=== PATIENT | female | born 1945 | race Caucasian/White ===

== ENCOUNTER → 2024-02-06 13:32 | Outpatient (REF) | payer MEDICARE, SELFPAY | LOC: WDC 13:32 | PROVIDERS: ATTENDING PHYSICIAN Physician Assistant Medical; REFERRING PHYSICIAN Internal Medicine Rheumatology | DX: Z12.31 Encounter for screening mammogram for malignant neoplasm of breast (principal); N95.9 Unspecified menopausal and perimenopausal disorder; M81.0 Age-related osteoporosis without current pathological fracture | CPT/HCPCS: 77063; 77067; 77080 ==

== ENCOUNTER 2024-11-11 14:33 | Emergency (ER) | payer MEDICARE, SELFPAY ==
[2024-11-11] VITALS (11 sets, daily range): BP systolic 114–146; BP diastolic 69–100; BMI 26.6
[2024-11-11 14:46] LABS: % Basophils 0.3 % (0-2); % Eosinophils 0.2 % (0-6); % Immature Granulocytes 0.9 % (0-0.5); % Lymphocytes 9.3 % (20.5-51.1); % Monocytes 7.7 % (1.7-9.3); % Neutrophils 81.6 % (42.2-75.2); Absolute Basophils 0.1 10^3/uL (0-0.2); Absolute Immature Granulocytes 0.1 10^3/uL (0-0.05); Absolute Lymphocytes 1.5 10^3/uL (1.2-3.4); Absolute Monocytes 1.2 10^3/uL (0.1-0.6); Absolute Neutrophils 12.9 10^3/uL (1.4-6.5); Hematocrit 38.4 % (37.0-47.0); Hemoglobin 13.1 g/dL (12.0-16.0); Mean Corp Hgb Conc. 34.1 g/dL (33.0-37.0); Mean Corpuscular Hgb 34.2 pg (27.0-31.0); Mean Corpuscular Volume 100.3 fL (81.0-99.0); Mean Platelet Volume 10.2 fL (7.4-10.4); Nucleated Red Blood Cells % 0 %; Platelet Count 225 10^3/uL (130-400); Red Blood Cell Count 3.83 10^6/uL (4.20-5.40); Red Cell Dist. Width 12.4 % (11.5-14.5); White Blood Cell Count 15.8 10^3/uL (4.8-10.8)
[2024-11-11 15:06] LABS: ALT (SGPT) 21 U/L (0-35); AST (SGOT) 31 U/L (14-36); Albumin 4.4 g/dl (3.5-5.0); Alkaline Phosphatase 58 U/L (38-126); Blood Urea Nitrogen 26 mg/dl (7-17); Calcium 9.9 mg/dl (8.4-10.2); Carbon Dioxide 27 mmol/L (22-30); Chloride 108 mmol/L (98-107); Glucose 157 mg/dl (70-99); Potassium 5.1 mmol/L (3.5-5.1); Sodium 141 mmol/L (135-145); Total Bilirubin 0.9 mg/dl (0.2-1.3); Total Protein 7.3 g/dl (6.3-8.2); eGFR 46.62
[2024-11-11 15:12] LABS: Troponin I < 0.012 ng/ml
[2024-11-11] MEDS: DILAUDID 0.5 MG IV ×2 (18:36→20:28)
[2024-11-11] MEDS: NSS 1000 IV (18:36)
--- NOTE | 2024-11-11 19:08 | ED.GENMED ---
History of Present Illness
<Nichole Escobar PA-C - Last Filed: 11/12/24 11:16>
General
Chief Complaint: Fainting/Passed Out
Source: patient
Exam Limitations: none
Time Seen by Provider: 11/11/24 16:50
Nursing documentation reviewed up to this point in time: agreed with
History of Present Illness
History of Present Illness:
79 y/o F
h/o HLD
severe osteoporosi and scoliosis
says she ate ham and felt like it didn't go down all the way; she got a little distressed/panicked and walked outside and subsequently got lightheaded and passed out on the concrete
woke up on the ground, neighbor saw and helped her up
she has hematoma and a small headache but mostly pain in her back, specifically L side posterior ribs
worse with changing position and her pox was low
no abd pain, vomiting, confusion, neck pain, weakness, numbness, thinners
Past History
<Nichole Escobar PA-C - Last Filed: 11/12/24 11:16>
Past History
ED Past Medical History: Hypercholesterolemia
ED Past Surgical History: Gynecological and Orthopedic
Social History
Tobacco: Non-smoker
Alcohol: None
Drug: None
Personal:
Living: with family
Review of Systems
<Nichole Escobar PA-C - Last Filed: 11/12/24 11:16>
Review of Systems
Allergies reviewed?: Yes
All Other Systems: Not applicable
Phy Exam
<Nichole Escobar PA-C - Last Filed: 11/12/24 11:16>
Physical Exam
Physical Exam:
GENERAL: Alert , in no apparent distress
HEAD: hematoma posterior scalp mild L upper; no bleeding
NECK: no midline tenderness, active ROM intact, no paraspinal muscle tenderness;
EYE: pupils equal and reactive, EOMs intact.
ENT: o/p clr, mmm. no hemotympanum
CARDIAC: Regular rate and rhythm, no edema
LUNGS: Clear breath sounds bilaterally, no acute respiratory distress, no wheezes/rales/rhonchi
ABDOMEN: Soft, without focal tenderness, no r/g, no cvat
no bruising
NEUROLOGICAL: Alert and oriented, no focal neuro deficits, CN intact, 5/5 strength, sensation intact
SKIN: Warm and dry,
back: severe scoliosis
L tenderness lower ribs; small bruising;
no cva tenderness
MUSCULOSKELETAL: moving amrs and legs well
L hand and elbow soreness;
peklvis stable, nontender hips b/l
PSYCH: Normal and appropriate interaction.
Course
<Nichole Escobar PA-C - Last Filed: 11/12/24 11:16>
Orders/Labs/Results
Orders:
Orders
11/11/24 14:34
Electrocardiogram (*1) Urgent
Reason for Study: Chest Pain
EKG- Treatment ONCE
11/11/24 14:38
CT Head W/o Iv Contrast Urgent
Comment:
Reason For Exam: syncope
11/11/24 14:40
Complete Blood Count/With Diff Urgent
Comprehensive Metabolic Panel Urgent
Troponin I Urgent
11/11/24 17:51
CT Cervical Spine W/o Iv Contr Urgent
Comment:
Reason For Exam: trauma syncope
CT Chest W/o Iv Contrast Urgent
Comment:
Reason For Exam: syncope, fall backwards, sob
11/11/24 18:07
0.9% Sodium Chloride 1000 ml [Nss] 1,000 ml IV BOLUS
HYDROmorphone [Dilaudid] 0.5 mg IV NOW STA
11/11/24 18:19
Elbow, 3 view, Left [CR Elbow - Left Min 3 Views ] Urgent
Comment:
Reason For Exam: pain injury
Hand, Right 3 View [CR Hand - Right Min 3 Views] Urgent
Comment:
Reason For Exam: pain injury
11/11/24 20:19
HYDROmorphone [Dilaudid] 0.5 mg .ROUTE .STK-MED ONE
11/11/24 20:28
HYDROmorphone [Dilaudid] 0.5 mg IV NOW STA
Abnormal Lab Results
11/11/24
14:40
WBC 15.8 H 10^3/uL
(4.8-10.8)
RBC 3.83 L 10^6/uL
(4.20-5.40)
MCV 100.3 H fL
(81.0-99.0)
MCH 34.2 H pg
(27.0-31.0)
Abs Immat Gran (auto) 0.1 H 10^3/uL
(0-0.05)
Absolute Neuts (auto) 12.9 H 10^3/uL
(1.4-6.5)
Absolute Monos (auto) 1.2 H 10^3/uL
(0.1-0.6)
Immature Gran % 0.9 H %
(0-0.5)
Neutrophils % 81.6 H %
(42.2-75.2)
Lymphocytes % 9.3 L %
(20.5-51.1)
Chloride 108 H mmol/L
(98-107)
BUN 26 H mg/dl
(7-17)
Creatinine 1.2 H mg/dL
(0.6-1.0)
Glucose 157 H mg/dl
(70-99)
11/11/24 14:40
11/11/24 14:40
Vital Signs
Initial and Last Documented VS:
Initial Vital Signs
Temp Pulse Resp BP Pulse Ox
36.3 C 66 16 136/100 5
11/11/24 14:34 11/11/24 14:34 11/11/24 14:34 11/11/24 14:34 11/11/24 14:34
Last Documented Vital Signs
Temp Pulse Resp BP Pulse Ox
36.3 C 67 19 121/71 99
11/11/24 14:34 11/11/24 23:30 11/11/24 23:30 11/11/24 23:00 11/11/24 19:20
<Mariela Bui MD - Last Filed: 11/11/24 20:22>
Orders/Labs/Results
Orders:
Orders
11/11/24 14:34
Electrocardiogram (*1) Urgent
Reason for Study: Chest Pain
EKG- Treatment ONCE
11/11/24 14:38
CT Head W/o Iv Contrast Urgent
Comment:
Reason For Exam: syncope
11/11/24 14:40
Complete Blood Count/With Diff Urgent
Comprehensive Metabolic Panel Urgent
Troponin I Urgent
11/11/24 17:51
CT Cervical Spine W/o Iv Contr Urgent
Comment:
Reason For Exam: trauma syncope
CT Chest W/o Iv Contrast Urgent
Comment:
Reason For Exam: syncope, fall backwards, sob
11/11/24 18:07
0.9% Sodium Chloride 1000 ml [Nss] 1,000 ml IV BOLUS
HYDROmorphone [Dilaudid] 0.5 mg IV NOW STA
11/11/24 18:19
Elbow, 3 view, Left [CR Elbow - Left Min 3 Views ] Urgent
Comment:
Reason For Exam: pain injury
Hand, Right 3 View [CR Hand - Right Min 3 Views] Urgent
Comment:
Reason For Exam: pain injury
11/11/24 20:19
HYDROmorphone [Dilaudid] 0.5 mg .ROUTE .STK-MED ONE
11/11/24 20:28
HYDROmorphone [Dilaudid] 0.5 mg IV NOW STA
Abnormal Lab Results
11/11/24
14:40
WBC 15.8 H 10^3/uL
(4.8-10.8)
RBC 3.83 L 10^6/uL
(4.20-5.40)
MCV 100.3 H fL
(81.0-99.0)
MCH 34.2 H pg
(27.0-31.0)
Abs Immat Gran (auto) 0.1 H 10^3/uL
(0-0.05)
Absolute Neuts (auto) 12.9 H 10^3/uL
(1.4-6.5)
Absolute Monos (auto) 1.2 H 10^3/uL
(0.1-0.6)
Immature Gran % 0.9 H %
(0-0.5)
Neutrophils % 81.6 H %
(42.2-75.2)
Lymphocytes % 9.3 L %
(20.5-51.1)
Chloride 108 H mmol/L
(98-107)
BUN 26 H mg/dl
(7-17)
Creatinine 1.2 H mg/dL
(0.6-1.0)
Glucose 157 H mg/dl
(70-99)
11/11/24 14:40
11/11/24 14:40
Vital Signs
Initial and Last Documented VS:
Initial Vital Signs
Temp Pulse Resp BP Pulse Ox
36.3 C 66 16 136/100 5
11/11/24 14:34 11/11/24 14:34 11/11/24 14:34 11/11/24 14:34 11/11/24 14:34
Last Documented Vital Signs
Temp Pulse Resp BP Pulse Ox
36.3 C 67 19 121/71 99
11/11/24 14:34 11/11/24 23:30 11/11/24 23:30 11/11/24 23:00 11/11/24 19:20
<Nichole Escobar PA-C - Last Filed: 11/12/24 11:16>
MDM/Problems Addressed
Differential Diagnosis Includes:
rib fx, PTX, head injury, contusion
MDM/Problems Addressed:
79-year-old female with a history of osteoporosis, scoliosis and hyperlipidemia had a syncopal event after developing nausea and fear while feeling like a piece of ham was in her esophagus not passing all the way through. That symptom has resolved.
When she passed out she fell backwards and hit her head on the concrete. She woke up and had left-sided back pain. She has no neurologic deficits. There is a hematoma to her scalp and a small bruise to her left scapular region. Patient's severe
scoliosis limited exam. Her pulse ox was minimally low at 90% but she is stable on 2 L. She was given pain medication for her back pain and feels better. Her CTs of head and neck were negative. She does have 3 rib fractures on the left side
posteriorly 8 through 10 along with a small adjacent hemothorax. There is no pneumothorax. Patient's abdomen was not scanned. I spoke with Dr. Mills from [facility] who accepted the patient as a trauma aware that she has not had abdominal
imaging. She is not anticoagulated. Transport ETA 9 PM
<Nichole Escobar PA-C - Last Filed: 11/12/24 11:16>
*Pulse Oximetry
SaO2: 5
Oxygen Mode of Delivery: Room air
Patient hypoxic: yes (89)
*Critical Care Note
Total Time (30-74mins, 75-104mins- exclusive of procedures): Not Applicable
ED Attending Note
<Nichole Escobar PA-C - Last Filed: 11/12/24 11:16>
-
Portions of this chart may have been created with voice recognition software.� Occasional wrong word or��sound alike� substitutions may have occurred due to the inherent limitations of voice recognition software.
<Mariela Bui MD - Last Filed: 11/11/24 20:22>
ED Attending Note
Patient seen and examined by attending physician: Yes
I performed the substantive portion of visit, reviewed & personally made and approve the management plan that is documented in note by myself or MICKI.: Yes
ED Attending Note:
I have seen and evaluated the patient with a [id number] encounter. I have spoken to the [MICKI] and involved in the medical history, the physical exam, medical decision making.
Evaluation and management service: agree unless noted differently below.
Results interpretation: agree unless noted differently below.
79-year-old woman presenting to the emergency department after a fall. Patient states that she got lightheaded dizzy passed out landing on her back. She is having some left-sided back pain. No headache. No numbness tingling. No weakness.
During my evaluation patient is resting comfortably. She is having some tenderness to the left posterior ribs around 7-10. . Abdomen is soft benign nontender. Concern for traumatic injury such as rib fracture or traumatic intracranial injury.
Patient is on [address] scans were obtained that does show left posterior 8th through 10th rib fractures with small hemothorax. Discussed with [facility] the excepted patient for transfer.
Discharge Plan
Departure
Patient Disposition: Acute Care Hospital
Date of Disposition: 11/11/24
Time of Disposition: 19:35
Discharge Problem:
Hemothorax, Multiple fractures of ribs
Prescriptions:
No Action
alendronate 70 MG tablet
70 mg PO Q7D
Patient Comments:
usually weekly on Monday
simvastatin 10 MG tablet
10 mg PO DAILY
cholecalciferol (vitamin D3) 1,000 UNIT capsule
1,000 unit PO DAILY
Calcium
500 mg PO DAILY
Referrals:
Marielos Duarte PA [Family Provider, Family Practice]
Hospital Transfer
Other hospital: [facility]
I certify that the patient requires transfer: Yes
Discussed case with accepting physician: [facility]
Reason for transfer: higher level of care
Interventions
Interventions:
*Risk Screen - Suicide Last Done: 11/11/24 14:34
*General Assessment Last Done: 11/11/24 18:22
*Neglect/Abuse Screening Last Done: 11/11/24 14:34
*ED- Fall Risk Assessment Last Done: 11/11/24 16:47
*ED COVID-19 Vaccine History Last Done: 11/11/24 16:47
*Nursing Disposition Last Done: 11/11/24 23:34
ED- Cardiac Assessment Last Done: 11/11/24 16:47
ED-Musculoskeletal Assessment Last Done: 11/11/24 18:22
ED- Neurological Assessment Last Done: 11/11/24 16:47
ED-Skin Assessment Last Done: 11/11/24 16:47
Discharge Date and Time
Discharge Date/Time: 11/11/24 23:35
Print Language: ERITREAN
== END 2024-11-11 23:35 | disposition short-term general hospital (02) ==
LOC: EMR 14:33
PROVIDERS: Emergency Medicine; EMERGENCY PHYSICIAN Student in an Organized Health Care Education/Training Program; FAMILY PHYSICIAN Physician Assistant Medical
DX: S22.42XA Multiple fractures of ribs, left side, initial encounter for closed fracture (principal); S27.1XXA Traumatic hemothorax, initial encounter; S00.03XA Contusion of scalp, initial encounter; W19.XXXA Unspecified fall, initial encounter; R55 Syncope and collapse; E78.00 Pure hypercholesterolemia, unspecified
CPT/HCPCS: 99285; 96374; 96376; 96361; 70450; 71250; 72125; 73080; 73130; 80053; 84484; 85025; 93005